=== PATIENT | female | born 1975 | race Caucasian/White ===

== ENCOUNTER 2017-02-13 10:38 | Inpatient (IN) | payer OTHER ==
--- NOTE | 2017-02-13 11:50 | EDPHY ---
H & P Stated Complaint: Low back pain with bowel changes Time Seen by Provider: 02/13/17 11:10 HPI/ROS: CHIEF COMPLAINT: Worsening recent low back pain HISTORY OF PRESENT ILLNESS: 42-year-old female with history of microdiskectomy [address] Eligio Roberts complaining of several weeks of progressively worsening low back pain with left buttock pain as well as change in bowel habits. She spoke with Dr. Eligio Roberts recommend she go to the ER for emergent MRI. No urinary abnormality. Atraumatic. No saddle anesthesia. No abdominal pain. No fever or chills. No foot drop. No flu-like symptoms Last oral intake 830 a.m. today REVIEW OF SYSTEMS: A ten point review of systems was performed and is negative with the exception of the items mentioned in the HPI PAST MEDICAL & SURGICAL HISTORY: Microdiskectomy April 2016 SOCIAL HISTORY:no IV drug use history PHYSICAL EXAM (Prior to examination, patient consented to physical exam, hands were washed and my usual and customary physical exam procedures followed) 1) GENERAL: Well-developed, well-nourished, alert and oriented. appears uncomfortable, standing on rocking back and forth secondary to pain 2) HEAD: Normocephalic, atraumatic 3) HEENT: Pupils equal, round, reactive to light bilaterally. Sclera anicteric. 4) NECK: Full range of motion, no meningeal signs. 5) LUNGS: Clear auscultation bilaterally, no wheezes, no rhonchi, no retractions. 6) HEART: Regular rate and rhythm, no murmur, no heave, no gallop. 7) ABDOMEN: No guarding, no rebound, no focal tenderness, negative McBurney's, negative Le's, negative Rovsing's, negative peritoneal sign, 8) MUSCULOSKELETAL: Moving all extremities, no focal areas of tenderness, no obvious trauma. No peripheral edema or discoloration. 9) BACK: Midline incision noted, well healed. No tenderness to palpation midline or paraspinous region. Left patella and Achilles reflexes are slowed compared to the right. 10) SKIN: No rash, no petechiae. 11) NEURO: Awake, alert, and oriented to person, place and time. Answers questions appropriately. There were no obvious focal neurologic abnormalities. No cerebellar dysfunction. Normal steady gait. Upper and lower extremities bilaterally with strength 5 / 5, reflexes 2+.. DIFFERENTIAL DIAGNOSIS: In no particular order, including but not limited to, fracture, sprain/strain, cauda equina, spinal infectious etiology. MEDICAL DECISION MAKING 11:50 a.m. Patient was sent to the emergency department By Dr. Eligio Robertsfor emergent MRI of her low back for concerns over possible spinal compression disorder. Emergent MRI will be obtained. - Personal History LMP (Females 10-55): IUD In Place Current Tetanus Diphtheria and Acellular Pertussis (TDAP): Yes - Medical/Surgical History Other PMH: degenerative disc disease. L5-S1 surgery 2016 for herniated disc. rosacea - Social History Smoking Status: Never smoked Constitutional: Initial Vital Signs Temperature (C) 36.7 C 02/13/17 10:40 Heart Rate 71 02/13/17 10:40 Respiratory Rate 18 02/13/17 10:40 Blood Pressure 140/74 H 02/13/17 10:40 O2 Sat (%) 96 02/13/17 10:40 O2 Delivery Mode Room Air Allergies/Adverse Reactions: No Known Allergies Allergy (Unverified 02/13/17 10:45) Home Medications: Medication Instructions Recorded Doxycycline Hyclate [Vibramycin 100 mg PO 02/13/17 100 MG (*)] Medical Decision Making - Diagnostics Imaging Results: Imaging Impressions Lumbar Spine MRI 02/13/17 11:17 Impression: Large recurrent extrusion or free fragment at L5-S1 causing significant left lateral recess encroachment compressing the S1 nerve root, as above. Results called to Cuong Gomez PA-C. Images reviewed by myself ED Course/Re-evaluation: 1:00 p.m.: Consultation with nurse practitioner Treasure with [facility] who is in the ER will contact Dr. Eligio Roberts. The patient repeatedly declined analgesia in the ER 2:30 p.m.: Phone consultation with the patient's primary neurosurgeon Dr. Eligio Roberts who recommended admission - Data Points Laboratory Results: Laboratory Results 02/13/17 13:07 02/13/17 13:07 02/13/17 02/13/17 02/13/17 13:07 13:07 13:07 WBC RBC Hgb Hct MCV MCH MCHC RDW Plt Count MPV Neut % (Auto) Lymph % (Auto) [place] % (Auto) Eos % (Auto) Baso % (Auto) Nucleat RBC Rel Count Absolute Neuts (auto) Absolute Lymphs (auto) Absolute Monos (auto) Absolute Eos (auto) Absolute Basos (auto) Absolute Nucleated RBC Immature Gran % Immature Gran # PT 13.0 SEC SEC (12.0-15.0) INR 0.99 (0.83-1.16) APTT 29.1 SEC SEC (23.0-38.0) Sodium 138 mEq/L mEq/L (134-144) Potassium 4.5 mEq/L mEq/L (3.5-5.2) Chloride 105 mEq/L mEq/L (97-110) Carbon Dioxide 23 mEq/l mEq/l (22-31) Anion Gap 10 mEq/L mEq/L (8-16) BUN 13 mg/dL mg/dL (7-23) Creatinine 0.7 mg/dL mg/dL (0.6-1.0) Estimated GFR > 60 Glucose 83 mg/dL mg/dL (70-100) Calcium 9.8 mg/dL mg/dL (8.5-10.4) Beta HCG, Qual NEGATIVE 02/13/17 13:07 WBC 6.65 10^3/uL 10^3/uL (3.80-9.50) RBC 4.27 10^6/uL 10^6/uL (4.18-5.33) Hgb 13.2 g/dL g/dL (12.6-16.3) Hct 41.1 % % (38.0-47.0) MCV 96.3 fL fL (81.5-99.8) MCH 30.9 pg pg (27.9-34.1) MCHC 32.1 g/dL L g/dL (32.4-36.7) RDW 13.2 % % (11.5-15.2) Plt Count 266 10^3/uL 10^3/uL (150-400) MPV 10.0 fL fL (8.7-11.7) Neut % (Auto) 34.9 % L % (39.3-74.2) Lymph % (Auto) 52.5 % H % (15.0-45.0) [place] % (Auto) 6.9 % % (4.5-13.0) Eos % (Auto) 4.7 % % (0.6-7.6) Baso % (Auto) 0.8 % % (0.3-1.7) Nucleat RBC Rel Count 0.0 % % (0.0-0.2) Absolute Neuts (auto) 2.33 10^3/uL 10^3/uL (1.70-6.50) Absolute Lymphs (auto) 3.49 10^3/uL H 10^3/uL (1.00-3.00) Absolute Monos (auto) 0.46 10^3/uL 10^3/uL (0.30-0.80) Absolute Eos (auto) 0.31 10^3/uL 10^3/uL (0.03-0.40) Absolute Basos (auto) 0.05 10^3/uL 10^3/uL (0.02-0.10) Absolute Nucleated RBC 0.00 10^3/uL 10^3/uL (0-0.01) Immature Gran % 0.2 % % (0.0-1.1) Immature Gran # 0.01 10^3/uL 10^3/uL (0.00-0.10) PT INR APTT Sodium Potassium Chloride Carbon Dioxide Anion Gap BUN Creatinine Estimated GFR Glucose Calcium Beta HCG, Qual Departure - Departure Disposition: [facility] Inpatient Acute Clinical Impression: Lumbar disc herniation Condition: Fair Referrals: NONE *PRIMARY CARE P,. [Primary Care Provider] - As per Instructions
[2017-02-13 13:18] LABS: % IMMATURE GRANULYOCYTES 0.2 % (0.0-1.1); ABSOLUTE IMMATURE GRANULOCYTES 0.01 10^3/uL (0.00-0.10); ADD DIFF? NO; ADD MORPH? NO; ADD SCAN? NO; ATYPICAL LYMPHOCYTE FLAG 10 (0-99); FRAGMENT RBC FLAG 0 (0-99); HEMATOCRIT 41.1 % (38.0-47.0); HEMOGLOBIN 13.2 g/dL (12.6-16.3); LEFT SHIFT FLG 0 (0-99); LIPEMIA HEMOLYSIS FLAG 80 (0-99); MEAN CELL HEMOGLOBIN 30.9 pg (27.9-34.1); MEAN CELL HEMOGLOBIN CONCENTR. 32.1 g/dL (32.4-36.7); MEAN CELL VOLUME 96.3 fL (81.5-99.8); PLATELET CLUMPS FLAG 10 (0-99); PLATELET COUNT 266 10^3/uL (150-400); RED BLOOD CELL COUNT 4.27 10^6/uL (4.18-5.33); RED CELL DISTRIBUTION WIDTH 13.2 % (11.5-15.2)
[2017-02-13 13:29] LABS: INR 0.99 (0.83-1.16)
[2017-02-13 13:30] LABS: APTT 29.1 SEC (23.0-38.0)
[2017-02-13 13:34] LABS: ANION GAP 10 mEq/L (8-16); CALCIUM 9.8 mg/dL (8.5-10.4); CARBON DIOXIDE 23 mEq/l (22-31); CHLORIDE 105 mEq/L (97-110); CREATININE 0.7 mg/dL (0.6-1.0); GLOMERULAR FILTRATION RATE > 60; GLUCOSE 83 mg/dL (70-100); POTASSIUM 4.5 mEq/L (3.5-5.2); SODIUM 138 mEq/L (134-144)
--- NOTE | 2017-02-13 14:49 | GHP ---
[f rep st] HISTORY AND PHYSICAL DATE OF ADMISSION: 02/13/2017 Patient was seen in the emergency room with Dr. Ledesma today on February 13, 2017, at 1:15 p.m. CHIEF COMPLAINT: Low back pain and left hamstring pain. HISTORY OF PRESENT ILLNESS: The patient is a 42-year-old with a history of L5- S1 microdiskectomy with Dr. Roberts on April 21, 2016. 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 Her symptoms started several months ago, and she has not been running for some time now due to her pain. She was seen in the office by Dr. Roberts last month who ordered an MRI, and it was pending approval. She went to the emergency room this morning in severe pain and underwent an MRI of her lumbar spine. She denies any incontinence issues but does note that she has some pressure when having a bowel movement in her lower back. She denies any saddle anesthesia. No numbness/tingling in bilateral lower extremities. She notes some weakness in her left leg but is unable to identify which muscle group in affected. REVIEW OF SYSTEMS: See HPI PAST MEDICAL HISTORY: Lumbar disc herniation PAST SURGICAL HISTORY: Patient had a L5-S1 microdiskectomy in April 2016. She has a history of breast augmentation as well as tummy tuck. CURRENT MEDICATIONS: She is taking Duexis.Last dose was 8 o'clock this morning. ALLERGIES: No known allergies. FAMILY MEDICAL HISTORY: Unknown family medical history. SOCIAL HISTORY: Patient denies any street or illicit drug use. She does not smoke. She drinks wine occasionally socially. PHYSICAL EXAMINATION: VITAL SIGNS: 36.7 Celsius, heart rate 71, respiratory rate of 18, blood pressure 140/74, oxygen 96% on room air. GENERAL: Well- developed, well-nourished. Alert and oriented. Appears uncomfortable. MOTOR: Bilateral quadriceps 5/5. Bilateral hamstrings 5/5. Bilateral extensor hallucis longus 5/5. Bilateral toe extensors 5/5. Bilateral tibialis anterior 5/5. Sensory is intact to light touch throughout her lower extremities. Deep tendon reflexes bilaterally patellar 2+. Unable to assess gait for she was in a stretcher. RADIOLOGY: MRI of the lumbar spine without contrast was performed. Findings demonstrate presence of a left laminotomy at L5-S1. There is a large recurrent extrusion or free fragment at the L5-S1 causing significant left lateral recess encroachment compressing the S1 nerve root. The free fragment in the left lateral recess measures 13 x 12 mm in the axial plane. ASSESSMENT AND PLAN: The patient is a 42-year-old with acute pain with a large left L5-S1 disc herniation who has a history of a microdiskectomy, L5-S1, in April [address] Roberts. She came into the emergency room this morning with severe pain. Risks, benefits and concerns discussed with patient regarding surgery. We will proceed with a left L5-S1 redo ZAN in the morning due to the severity of her disk herniation and severe pain she is experiencing. She has subjective weakness she describes in her left lower extremity. We will admit her to optimize pain management with surgical planning in mind. /[id number]/MODL MTDD
[2017-02-13] MEDS ORDERED: diphenhydrAMINE 25 MG CAP PO PRN (15:29)
[2017-02-13] MEDS ORDERED: ACETAMINOPHEN 325 MG TAB PO PRN (15:29)
[2017-02-13] MEDS ORDERED: ONDANSETRON DISINTEGRATING 4 MG TAB PO PRN (15:29)
[2017-02-13] MEDS ORDERED: ONDANSETRON 4 MG/2 ML VIAL IVP PRN (15:29)
[2017-02-13] MEDS ORDERED: HYDROCODONE/APAP 5/325 TAB PO PRN (15:29)
[2017-02-13] MEDS ORDERED: NS W/ 20 KCl/L 1,000 ML IV SCH (15:30)
[2017-02-13] MEDS ORDERED: HYDROmorphONE/DILAUDID 2 MG/ML INJ ONE (15:46)
[2017-02-13] MEDS: HYDROmorphONE/DILAUDID 1 MG/ML SYR IVP PRN ×2 (15:54→21:04)
[2017-02-14] MEDS: HYDROmorphONE/DILAUDID 2 MG TAB PO PRN ×3 (01:41→19:52)
[2017-02-14] MEDS: DOXYCYCLINE HYCLATE 100 MG CAP/TAB PO SCH (08:29)
[2017-02-14] MEDS ORDERED: DOXYCYCLINE HYCLATE 50 MG PO SCH (09:00)
[2017-02-14] MEDS ORDERED: THROMBIN (BOVINE) 5,000 UNIT VIAL TP ONE (09:18)
[2017-02-14] MEDS ORDERED: DEPO METHYLPREDNISOLONE 40 MG/ML SDV ONE (09:19)
[2017-02-14] MEDS ORDERED: BUPIVACAINE/EPI 0.25% 30 ML SDV ONE (09:19)
[2017-02-14] MEDS ORDERED: BACITRACIN 50,000 UNITS/10 ML SYR IRR ONE (09:19)
[2017-02-14] MEDS ORDERED: ceFAZolin 2 GM/DEXTROSE 100 ML IV ONE (10:00)
[2017-02-14] MEDS ORDERED: CEFAZOLIN 2 GM/DEXTROSE/100 ML BAG IV ONE (10:10)
[2017-02-14] MEDS ORDERED: MIDAZOLAM 2 MG/2 ML VIAL ONE (10:55)
[2017-02-14] MEDS ORDERED: fentaNYL 100 MCG/2 ML INJ ONE ×4 (11:02→12:36)
[2017-02-14] MEDS ORDERED: LIDOCAINE 2% 100 MG/5 ML SYR ONE (11:03)
[2017-02-14] MEDS ORDERED: PROPOFOL/EMULSION 500 MG/50 ML BOTTLE IV ONE ×3 (11:03→13:01)
[2017-02-14] MEDS ORDERED: DEXAMETHASONE 4 MG/ML VIAL ONE ×2 (11:03)
[2017-02-14] MEDS ORDERED: ROCURONIUM 50 MG/5 ML VIAL ONE (11:03)
--- NOTE | 2017-02-14 13:37 | POSTOPPROG ---
Post Op Note Date of Operation: 02/14/17 Surgeon: Sage Roberts Gear Design Engineer: Nadege Anesthesiologist: Anai Anesthesia: GET(General Endotracheal) Pre-op Diagnosis: recurrent left L5/S1 HNP Post-op Diagnosis: same Indication: left leg pain Procedure: redo left L5/S1 Meenu Findings: large free fragment behind body of S1 Inf/Abcess present in the surg proc area at time of surgery?: No EBL: 50-100 Complications: none
--- NOTE | 2017-02-14 13:40 | SOAPPROG ---
SOAP Progress Note Assessment/Plan: Assessment: Post op check: doing well after left L5/s1 redo ZAN with removal of large free fragment HNP. Plan: DC Home today if tolerating PO, Urinating, ambulating and with good pain control on oral meds Follow up with Dr. Roberts in 7-10 days call [phone] with questions/concerns Subjective: awake, alert, comfortable Objective: Vital Signs Temp Pulse Resp BP Pulse Ox 36.6 C 40 L 16 113/68 96 02/14/17 08:00 02/14/17 08:17 02/14/17 08:17 02/14/17 08:17 02/14/17 08:17 02/13/17 02/14/17 02/15/17 05:59 05:59 05:59 Intake Total 1200 Output Total 450 Balance 750 PT 13.0 SEC (12.0-15.0) 02/13/17 13:07 INR 0.99 (0.83-1.16) 02/13/17 13:07 Vitals; HR: 50 BP: 108/47 O2: 99% neuro: VALLES, sens +LT follows commands 5/5 bilateral DF/PF/EHL flexes knees ICD10 Worksheet Patient Problems: Problems Problem Status Onset Lumbar disc herniation Acute
[2017-02-14] MEDS ORDERED: OXYCODONE/APAP 5/325 TAB PO PRN (13:44)
[2017-02-14] MEDS ORDERED: POLYETHYLENE GLYCOL 3350 17 GM PKT PO PRN (13:44)
[2017-02-14] MEDS ORDERED: BISACODYL 10 MG SUPP PR PRN (13:44)
[2017-02-14] MEDS ORDERED: ACETAMINOPHEN 325 MG TAB PO PRN (13:44)
[2017-02-14] MEDS ORDERED: LACTULOSE 20 GM/30 ML UDCUP PO PRN (13:44)
[2017-02-14] MEDS ORDERED: DIAZEPAM 10 MG/2 ML SYR IVP PRN (13:44)
[2017-02-14] MEDS ORDERED: DIAZEPAM 5 MG TAB PO PRN (13:44)
--- NOTE | 2017-02-14 15:58 | GOP ---
[f rep st] OPERATIVE REPORT DATE OF OPERATION: 02/14/2017 SURGEON: Analy Roberts MD NEUROSURGEON: Analy Roberts MD SILVICULTURE FORESTER: Aayush Light PA-C PREOPERATIVE DIAGNOSIS: Recurrent disk herniation, left L5-S1. POSTOPERATIVE DIAGNOSIS: Recurrent disk herniation, left L5-S1. PROCEDURE PERFORMED: Left L5-S1 re-exploration with S1 laminotomy and evacuation of large intraspin al disk herniation (11498), microscope, fluoroscopy. FINDINGS: ESTIMATED BLOOD LOSS: 25 cc. INDICATIONS: The patient is a healthy woman who had a prior history of a left L5-S1 diskectomy, who did well. She returned to our office about a month ago with increasingly severe left lower extremi ty pain. She clearly had recurrent left S1 radiculopathy, and we suggested an MRI. Her insurance [employer] would not approve the MRI. Clinical history was very consistent with recurrent disk herniati on, but they simply would not approve another MRI. We tried to manage this conservatively, but then on Thursday (yesterday) the patient had just excruciating pain that she could not tolerate any longer . We suggested a visit to the emergency room where she was seen in [facility] ER an d indeed the ER physician felt that an MRI was warranted. The MRI demonstrated a huge left L5-S1 di sk extrusion causing severe stenosis of the canal and compressing the left S1 and S2 nerve roots. T here was no reasonable expectation that conservative measures would alleviate this, and the patient is in excruciating pain. She desired to have surgery. She was placed on the schedule this morning for an urgent left L5-S1 re-exploration. The MRI did demonstrate dura draped over the top of the la rge disk extrusion. The S1 nerve root was pushed laterally. The S2 nerve root was also being compr essed and I suggested surgery. The risk of CSF leak and continued symptoms was discussed. If furth er disease, herniations occur here, we would naturally consider spinal fusion. She understood the r isks of surgery, and she wanted to proceed. DESCRIPTION OF PROCEDURE: The patient was taken to the operating room and placed in a supine positi on. General anesthesia was begun. She was flipped prone onto the [place]o frame. Care was taken to pad all points of contact. Her back was sterilely prepped and draped in the usual fashion. A local izing x-ray was taken. We opened the previous incision and extended it rostrally about 3 or 4 mm an d caudally about 3 or 4 cm. Our prior incision was under 15 mm; this was just right at 25 mm. The subcutaneous tissue was dissected using Bovie cautery down to the fascia and a subperiosteal dissect ion was made down the left side of the sacrum. We identified the L5-S1 facet joint. We did not exp ose the L5 lamina itself. We had excellent exposure of the sacrum, and the prior laminotomy defect was identified. We then drilled a rostral S1 hemilaminotomy and worked our way laterally down to th e S1 pedicle where we decompressed flush with the pedicle. We came over the rostral aspect of the p edicle and the L5-S1 foramen. There was a large amount of scar tissue present here. The S1 nerve r oot was identified. We extended our laminotomy medially up above the S2 nerve root, and between the 2 was a large very firm mass that was covered in some epidural fat and some epidural veins. These were removed and, indeed, this was the fragment in question. We delivered an absolutely huge fragme nt between these 2 nerves; it measured about 3 cm across by 2 cm across, when put on a towel. Volum etrically, it was the size of a very large marble. This relaxed the S2 and S1 nerve roots. We then spent considerable time probing underneath these nerve roots for additional fragments. We were abl e to reach up and palpate the L5-S1 disk itself, and there was some persistent rostral bulging in th e anulus of L5-S1 but really no additional fragments. We then palpated the epidural scar from the p rior surgery, and there was really no evidence of any additional mass underneath the thecal sac. We irrigated with antibiotic saline solution and placed some Depo-Medrol down over the S1 and S2 nerve roots. We then closed the incision in multiple layers using Vicryl sutures. Running PDS was place d in the skin itself. The patient was reversed from anesthesia, extubated, and transferred to the r ecovery room in stable condition. COMPLICATIONS: None. /[id number]/MODL
[2017-02-14] MEDS: SENNOSIDES/DOCUSATE SODIUM TAB PO SCH (19:52)
[2017-02-14] MEDS: FAMOTIDINE 20 MG TAB PO SCH (20:16)
[2017-02-14] MEDS ORDERED: FAMOTIDINE 20 MG/NACL 50 ML IV SCH (21:00)
[2017-02-15] MEDS: HYDROmorphONE/DILAUDID 2 MG TAB PO PRN ×2 (05:01→11:12)
[2017-02-15 05:25] LABS: % IMMATURE GRANULYOCYTES 0.3 % (0.0-1.1); ABSOLUTE IMMATURE GRANULOCYTES 0.03 10^3/uL (0.00-0.10); ADD DIFF? NO; ADD MORPH? NO; ADD SCAN? NO; ATYPICAL LYMPHOCYTE FLAG 0 (0-99); FRAGMENT RBC FLAG 0 (0-99); HEMATOCRIT 35.3 % (38.0-47.0); HEMOGLOBIN 11.5 g/dL (12.6-16.3); LEFT SHIFT FLG 0 (0-99); LIPEMIA HEMOLYSIS FLAG 80 (0-99); MEAN CELL HEMOGLOBIN 31.5 pg (27.9-34.1); MEAN CELL HEMOGLOBIN CONCENTR. 32.6 g/dL (32.4-36.7); MEAN CELL VOLUME 96.7 fL (81.5-99.8); MEAN PLATELET VOLUME 10.4 fL (8.7-11.7); PLATELET CLUMPS FLAG 0 (0-99); PLATELET COUNT 221 10^3/uL (150-400); RED BLOOD CELL COUNT 3.65 10^6/uL (4.18-5.33); RED CELL DISTRIBUTION WIDTH 12.8 % (11.5-15.2)
[2017-02-15 05:45] LABS: ANION GAP 6 mEq/L (8-16); CALCIUM 9.2 mg/dL (8.5-10.4); CARBON DIOXIDE 25 mEq/l (22-31); CHLORIDE 103 mEq/L (97-110); CREATININE 0.8 mg/dL (0.6-1.0); GLOMERULAR FILTRATION RATE > 60; GLUCOSE 96 mg/dL (70-100); POTASSIUM 4.6 mEq/L (3.5-5.2); SODIUM 134 mEq/L (134-144)
[2017-02-15 07:28] VITALS: TEMP 97.8
[2017-02-15] MEDS ORDERED: ENOXAPARIN 40 MG/0.4 ML SYR SC SCH (09:00)
[2017-02-15] MEDS: SENNOSIDES/DOCUSATE SODIUM TAB PO SCH (09:52)
[2017-02-15] MEDS: FAMOTIDINE 20 MG TAB PO SCH (09:58)
[2017-02-15] MEDS: DOXYCYCLINE HYCLATE 100 MG CAP/TAB PO SCH (09:58)
[2017-02-15 12:15] VITALS: BP 129/70; PULSE 41; RESP 14; O2SAT 95
--- NOTE | 2017-02-15 12:24 | SOAPPROG ---
SOAP Progress Note Assessment/Plan: Assessment: doing well after left L5/s1 redo ZAN with removal of large free fragment HNP. left leg pain better Plan: DC Home today if tolerating PO, Urinating, ambulating and with good pain control on oral meds Follow up with Dr. Roberts in 7-10 days call [phone] with questions/concerns 02/15/17 12:23 Subjective: lying in bed, comfortable. Left leg feels much better. no new weakness or tingling Objective: Vital Signs Temp Pulse Resp BP Pulse Ox 36.6 C 41 L 14 129/70 H 95 02/15/17 12:00 02/15/17 12:00 02/15/17 12:00 02/15/17 12:00 02/15/17 12:00 Laboratory Results 02/15/17 04:15 02/15/17 04:15 02/14/17 02/15/17 02/16/17 05:59 05:59 05:59 Intake Total 1200 1550 Output Total 450 1875 Balance 750 -325 PT 13.0 SEC (12.0-15.0) 02/13/17 13:07 INR 0.99 (0.83-1.16) 02/13/17 13:07 Neuro: VALLES, sens +Lt ambulatory 5/5 DF/PF/EHL dressing: CDI ICD10 Worksheet Patient Problems: Problems Problem Status Onset Lumbar disc herniation Acute
== END 2017-02-15 13:06 | disposition home or self-care (01) | DRG 520 ==
LOC: F3N 15:39 → OBSVTOIN 15:42
PROVIDERS: ADMIT Neurological Surgery; ATTEND Neurological Surgery
PROC: 0SB40ZZ Excision of Lumbosacral Disc, Open Approach (ICD-10-PCS; principal; 2017-02-14 10:30)
DX: M51.17 Intervertebral disc disorders with radiculopathy, lumbosacral region (principal)
CPT/HCPCS: 97161-GP; 97165-GO; J0690; J1030; J1100; J1170; J1650; J2001; J2250; J2405; J2704; J3010

== ENCOUNTER 2017-03-16 10:22 | Inpatient (IN) | payer OTHER ==
--- NOTE | 2017-03-16 10:39 | EDPHY ---
H & P Stated Complaint: Exacerbation back pain;sent by neuro and will see in ED Time Seen by Provider: 03/16/17 10:38 - Personal History LMP (Females 10-55): IUD In Place Current Tetanus Diphtheria and Acellular Pertussis (TDAP): Yes - Medical/Surgical History Hx Asthma: No Hx Chronic Respiratory Disease: No Hx Diabetes: No Hx Cardiac Disease: No Hx Renal Disease: No Hx Cirrhosis: No Hx Alcoholism: No Hx HIV/AIDS: No Hx Splenectomy or Spleen Trauma: No Other PMH: degenerative disc disease. L5-S1 surgery 2016 for herniated disc, again 02/05/17. breast Augmentation. Tummy tuck. rosacea - Social History Smoking Status: Never smoked Constitutional: Initial Vital Signs Temperature (C) 36.7 C 03/16/17 10:30 Heart Rate 68 03/16/17 10:30 Respiratory Rate 18 03/16/17 10:30 Blood Pressure 117/93 H 03/16/17 10:30 O2 Sat (%) 98 03/16/17 10:30 O2 Delivery Mode Room Air Allergies/Adverse Reactions: No Known Allergies Allergy (Verified 03/16/17 10:33) Home Medications: Medication Instructions Recorded GABAPENTIN 400 mg PO 03/16/17 Methocarbamol [Robaxin 750 mg (*)] 750 mg PO 03/16/17 Medical Decision Making - Diagnostics Imaging: Discussed imaging studies w/ faculty i on call medical assistant Radiologist, I viewed and interpreted images myself ED Course/Re-evaluation: CHIEF COMPLAINT: radiculopathy HISTORY OF PRESENT ILLNESS: The patient is a 42 y/o female arriving with her family member at the referral of her neurosurgeon complaining of recurrent worsening leg radiculopathy. She has a history of lumbar herniation with spinal surgeries. Her pain is worst in her left gluteal region and thigh, but is also present in her right leg. Neurosurgeon requested lumbar MRI. Narcotics do not alleviate her pain. REVIEW OF SYSTEMS: A 10 point review of systems was performed and is negative with the exception of the elements mentioned in the history of present illness. PHYSICAL EXAM: HR, BP, O2 Sat, RR. Temp noted General Appearance: Alert, well hydrated, appropriate, and non-toxic appearing. Head: Atraumatic without scalp tenderness or obvious injury Eyes: Pupils equal, round, reactive to light and accommodation, EOMI, no trauma , no injection. Nose: Atraumatic, no rhinorrhea, clear. Throat: Mucus membranes moist. Neck: Supple,nontender, no lymphadenopathy. Respiratory: No retractions, no distress, no wheezes, and no accessory muscle use. Lungs are clear to auscultation bilaterally. Cardiovascular: Regular rate and rhythm, no murmurs, rubs, or gallops. Good capillary refill all extremities. Gastrointestinal: Abdomen is soft, nontender, non-distended, no masses, no rebound, no guarding, no peritoneal signs. Musculoskeletal: Normal active ROM of all extremities, atraumatic. Neurological: Alert, appropriate, and interactive. The patient has normal DTRs and non-focal cranial nerves, motor, sensory, and cerebellar exam. Skin: No rashes, good turgor, no nodules on palpation. Past medical history: Radiculopathy, lumbar disc herniation Past surgical history: 2 lumbar disc surgeries Family history: noncontributory Social history: Family member at bedside. Neurosurgeon: Dr. Roberts DIAGNOSTICS/PROCEDURES/CRITICAL CARE TIME: Lumbar MRI w/wout IV contrast: recurrent acute L5-S1 disc herniation with impingement DIFFERENTIAL DIAGNOSIS: The differential diagnosis for the patient's back pain included but was not limited to musculoskeletal pain, epidural abscess, herniated disk, spinal fracture, and intra-abdominal causes including urinary system. MEDICAL DECISION MAKING: This is an otherwise healthy 42 y/o female with a history of lumbar radiculopathy and spinal surgeries presenting with worsening radiculopathy. Plan for lumbar MRI and symptomatic management. 5mg IV Ketamine administered. Preoperative labs drawn. 1155: Reassessed patient. Neuro exam remains normal. She continues to have pain only slightly improved since Ketamine. She declines further pain meds at this time. MRI pending. 1400: MRI shows acute L5-S1 disc herniation with impingement. Dr. Morgan, neurosurgeon, plans to take her to surgery. I discussed findings with the patient. She continues to be in severe pain, but is declining pain medications. 1405: Consulted with Dr. Morgan. He will take patient to surgery at 16:30 today. - Data Points Laboratory Results: Laboratory Results 03/16/17 10:49 03/16/17 10:49 03/16/17 03/16/17 03/16/17 10:49 10:49 10:49 WBC 6.29 10^3/uL 10^3/uL (3.80-9.50) RBC 4.59 10^6/uL 10^6/uL (4.18-5.33) Hgb 14.5 g/dL g/dL (12.6-16.3) Hct 43.7 % % (38.0-47.0) MCV 95.2 fL fL (81.5-99.8) MCH 31.6 pg pg (27.9-34.1) MCHC 33.2 g/dL g/dL (32.4-36.7) RDW 13.3 % % (11.5-15.2) Plt Count 227 10^3/uL 10^3/uL (150-400) MPV 10.6 fL fL (8.7-11.7) Neut % (Auto) 53.9 % % (39.3-74.2) Lymph % (Auto) 38.3 % % (15.0-45.0) [place] % (Auto) 5.9 % % (4.5-13.0) Eos % (Auto) 1.1 % % (0.6-7.6) Baso % (Auto) 0.5 % % (0.3-1.7) Nucleat RBC Rel Count 0.0 % % (0.0-0.2) Absolute Neuts (auto) 3.39 10^3/uL 10^3/uL (1.70-6.50) Absolute Lymphs (auto) 2.41 10^3/uL 10^3/uL (1.00-3.00) Absolute Monos (auto) 0.37 10^3/uL 10^3/uL (0.30-0.80) Absolute Eos (auto) 0.07 10^3/uL 10^3/uL (0.03-0.40) Absolute Basos (auto) 0.03 10^3/uL 10^3/uL (0.02-0.10) Absolute Nucleated RBC 0.00 10^3/uL 10^3/uL (0-0.01) Immature Gran % 0.3 % % (0.0-1.1) Immature Gran # 0.02 10^3/uL 10^3/uL (0.00-0.10) APTT 27.5 SEC SEC (23.0-38.0) Sodium 144 mEq/L mEq/L (134-144) Potassium 4.1 mEq/L mEq/L (3.5-5.2) Chloride 105 mEq/L mEq/L (97-110) Carbon Dioxide 24 mEq/l mEq/l (22-31) Anion Gap 15 mEq/L mEq/L (8-16) BUN 13 mg/dL mg/dL (7-23) Creatinine 0.8 mg/dL mg/dL (0.6-1.0) Estimated GFR > 60 Glucose 88 mg/dL mg/dL (70-100) Calcium 9.9 mg/dL mg/dL (8.5-10.4) Medications Given: Discontinued Medications Ketamine HCl (Ketamine) 5 mg IVP EDNOW ONE Stop: 03/16/17 10:54 Last Admin: 03/16/17 11:39 Dose: 5 mg Departure - Departure Disposition: [facility] Inpatient Acute Clinical Impression: Lumbar disc herniation Condition: Fair Referrals: CARMEN HALE [Other] - As per Instructions Report Scribed for: Pollo Barry Report Scribed by: Sugey Markham Date of Report: 03/16/17 Time of Report: 10:48
[2017-03-16] MEDS ORDERED: KETAMINE 100 MG/10 ML SYR IVP ONE (10:53)
[2017-03-16 11:05] LABS: % IMMATURE GRANULYOCYTES 0.3 % (0.0-1.1); ABSOLUTE IMMATURE GRANULOCYTES 0.02 10^3/uL (0.00-0.10); ADD DIFF? NO; ADD MORPH? NO; ADD SCAN? NO; ATYPICAL LYMPHOCYTE FLAG 10 (0-99); FRAGMENT RBC FLAG 0 (0-99); HEMATOCRIT 43.7 % (38.0-47.0); HEMOGLOBIN 14.5 g/dL (12.6-16.3); LEFT SHIFT FLG 0 (0-99); LIPEMIA HEMOLYSIS FLAG 80 (0-99); MEAN CELL HEMOGLOBIN 31.6 pg (27.9-34.1); MEAN CELL HEMOGLOBIN CONCENTR. 33.2 g/dL (32.4-36.7); MEAN CELL VOLUME 95.2 fL (81.5-99.8); MEAN PLATELET VOLUME 10.6 fL (8.7-11.7); PLATELET CLUMPS FLAG 20 (0-99); PLATELET COUNT 227 10^3/uL (150-400); RED BLOOD CELL COUNT 4.59 10^6/uL (4.18-5.33); RED CELL DISTRIBUTION WIDTH 13.3 % (11.5-15.2)
[2017-03-16 11:19] LABS: ANION GAP 15 mEq/L (8-16); CALCIUM 9.9 mg/dL (8.5-10.4); CARBON DIOXIDE 24 mEq/l (22-31); CHLORIDE 105 mEq/L (97-110); CREATININE 0.8 mg/dL (0.6-1.0); GLOMERULAR FILTRATION RATE > 60; GLUCOSE 88 mg/dL (70-100); POTASSIUM 4.1 mEq/L (3.5-5.2); SODIUM 144 mEq/L (134-144)
[2017-03-16] MEDS ORDERED: GADOBUTROL 10 ML VIAL IVP ONE (12:38)
[2017-03-16] MEDS ORDERED: BUPIVACAINE/EPI 0.25% 30 ML SDV ONE ×2 (15:22→15:35)
[2017-03-16] MEDS ORDERED: BUPIVACAINE 0.25% 30 ML SDV ONE (15:22)
[2017-03-16] MEDS ORDERED: THROMBIN (BOVINE) 20,000 UNIT VIAL TP ONE (15:22)
[2017-03-16] MEDS ORDERED: BACITRACIN 50,000 UNITS/10 ML SYR IRR ONE (15:23)
[2017-03-16] MEDS ORDERED: ceFAZolin 2 GM/DEXTROSE 100 ML IV ONE (15:47)
[2017-03-16] MEDS ORDERED: CEFAZOLIN 2 GM/DEXTROSE/100 ML BAG IV ONE (15:52)
[2017-03-16] MEDS ORDERED: LR 1,000 ML IV ONE (16:04)
[2017-03-16] MEDS ORDERED: MIDAZOLAM 2 MG/2 ML VIAL IVP ONE (16:08)
--- NOTE | 2017-03-16 16:08 | PDANEPAE ---
ANE History of Present Illness radicular pain with large herniated disc ANE Past Medical History - Cardiovascular History Hx Hypertension: No Hx Arrhythmias: No Hx Chest Pain: No Hx Coronary Artery / Peripheral Vascular Disease: No Hx CHF / Valvular Disease: No Hx Palpitations: No - Pulmonary History Hx COPD: No Hx Asthma/Reactive Airway Disease: No Hx Recent Upper Respiratory Infection: No Hx Oxygen in Use at Home: No Hx Sleep Apnea: No - Endocrine History Hx Diabetes: No Hypothyroid: No - Renal History Hx Renal Disorders: No - Liver History Hx Hepatic Disorders: No - Neurological & Psychiatric Hx Hx Neurological and Psychiatric Disorders: Yes - Chronic Pain History Chronic Pain: Yes ANE Review of Systems - Exercise capacity Exercise capacity: >=4 METS - Systems Constitutional: Reports: no symptoms Cardiac: Reports: no symptoms Respiratory: Reports: no symptoms Muscolosketal: Reports: back pain Neurological: Reports: paresthesia ANE Patient History - Allergies Allergies/Adverse Reactions: No Known Allergies Allergy (Verified 03/16/17 10:33) - Home Medications Home Medications: Doxycycline Hyclate [Morgidox] 50 mg PO DAILY 03/16/17 [Last Taken 03/15/17] Gabapentin [Neurontin 100 MG (*)] 100 mg PO DAILY PRN 03/16/17 [Last Taken 03/16 1 cap] Methocarbamol [Robaxin 750 mg (*)] 750 mg PO DAILY PRN 03/16/17 [Last Taken Unknown] - NPO status NPO Since - Liquids (Date): 03/16/17 NPO Since - Liquids (Time): 09:00 NPO Since - Solids (Date): 03/16/17 NPO Since - Solids (Time): 09:00 - Anes Hx Anes Hx: no prior problems - Smoking Hx Smoking Status: Never smoked - Alcohol Use Alcohol Use: Rarely ANE Labs/Vital Signs - Labs Result Diagrams: 03/16/17 10:49 03/16/17 10:49 - Vital Signs Blood Pressure: 113/61 Heart Rate: 38 Respiratory Rate: 16 O2 Sat (%): 98 Height: 177.8 cm Weight: 68.039 kg ANE Physical Exam - Airway Neck exam: FROM Mallampati Score: Class 1 - Pulmonary Pulmonary: no respiratory distress - Cardiovascular Cardiovascular: regular rate and rhythym - ASA Status ASA Status: I, E
[2017-03-16] MEDS ORDERED: fentaNYL 100 MCG/2 ML INJ ONE ×3 (16:14→19:30)
[2017-03-16] MEDS ORDERED: PROPOFOL/EMULSION 500 MG/50 ML BOTTLE IV ONE ×2 (16:14→17:57)
[2017-03-16] MEDS ORDERED: REMIFENTANIL HCL 1 MG VIAL ONE ×4 (16:14→17:57)
[2017-03-16] MEDS ORDERED: LIDOCAINE 2% 5 ML SDV ONE (16:14)
[2017-03-16] MEDS ORDERED: ROCURONIUM 50 MG/5 ML VIAL ONE (16:14)
[2017-03-16] MEDS ORDERED: PROPOFOL 200 MG/20 ML VIAL ONE (16:14)
[2017-03-16] MEDS ORDERED: SCOPOLAMINE HYDROBROMIDE 1.5 MG PATCH TD SCH (16:15)
--- NOTE | 2017-03-16 16:19 | GHP ---
[f rep st] PREOP HISTORY AND PHYSICAL DATE OF ADMISSION: 03/16/2017 CHIEF COMPLAINT: Patient was seen in the emergency room today, March 16, 2017, at [address] Morgan, for left leg pain. HISTORY OF PRESENT ILLNESS: Patient is a very healthy, active, 42-year-old female, who is status post L5-S1 left microdiskectomy in [place] [address] Roberts, and a re-do L5-S1 left microdiskectomy on February 14, 2017, with Dr. Roberts. She was doing well postoperatively and nearly all of her left leg pain had resolved until approximately 1-1/2 weeks ago. She began to feel some sensations in the posterior aspect of her left leg again, which has increasingly gotten worse over the last few days. Her current symptoms start in her left buttock and run down the posterior aspect of her left leg. She is also starting to feel symptoms in her right buttock as well. She denies any bowel or bladder incontinence. She denies any saddle anesthesia. But, patient does state she feels she has frequent urgency to urinate and is finding having a bowel movement extremely painful. REVIEW OF SYSTEMS: A 12-point review of systems were reviewed and negative aside for what was mentioned in the HPI. PAST MEDICAL HISTORY: Degenerative disk disease, rosacea. PAST SURGICAL HISTORY: L5-S1 microdiskectomy in 2015, L5-S1 microdiskectomy February 14, 2017, breast augmentation, tummy tuck. FAMILY HISTORY: Patient denies any cancer, diabetes, or cardiac disease in her mother and father. 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 Does not smoke cigarettes. Does not do drugs. CURRENT MEDICATIONS: gabapentin and Robaxin. ALLERGIES: No known drug allergies. PHYSICAL EXAMINATION: VITAL SIGNS: Blood pressure is 117/93, heart rate is 68 , respiratory rate of 18, temperature is 36.7 Celsius. Oxygen saturation is 98 % on room air. HEENT: Head is normocephalic and atraumatic. Pupils are equal , round and reactive to light. EOMI is intact. Full visual pimentel by confrontation. NECK: Soft and supple. Full range of motion with flexion, extension, lateral bending rotation. RESPIRATORY: Deferred. CARDIAC: Deferred. ABDOMEN: Soft and nontender. GENITOURINARY: Deferred. RECTAL: Deferred. NEUROLOGICAL: The patient is awake, alert, and oriented to name, place, location, date, time, and situation. Memory is intact to immediate, past , and current events. Speech: No aphasia or dysphonia. Cranial nerves: 2 through 12 are grossly intact. Motor: The patient has 5/5 strength in all muscle groups bilateral lower extremities and upper extremities, to include deltoids, biceps, triceps, brachial radialis, wrist flexion and extensors, proposal specialist , intrinsic fingers, iliopsoas, quadriceps, hamstrings, plantar flexion, dorsal flexion, EHL testing. Sensation: Grossly intact to light touch throughout all dermatomal distributions in bilateral lower extremities. Positive straight leg raise on the left. Negative NANCY test bilaterally. Reflexes: Biceps, triceps , brachial radialis, knee reflex and ankle reflex are 2+/4. Toes are downgoing bilaterally. Roberto sign is negative. Babinski is negative. No evidence of clonus. DIAGNOSTIC STUDIES: New MRI of the lumbar spine performed with and without contrast on March 16, 2017, demonstrated a large recurrent extrusion of the left parasagittal location at L5-S1, extending caudally posteriorly to the L5 nerve root, causing severe lateral recess encroachment and moderate central spinal canal narrowing. ASSESSMENT/PLAN: Patient is a healthy 42-year-old female who presented to the emergency room with excruciating left leg pain and is status post re-do left L5- S1 microdiskectomy from February 14, 2017. Patient was seen in the emergency room today with increasing pain in her left posterior leg. MRI of the lumbar spine demonstrated a large recurrent disk extrusion at L5-S1, causing severe left lateral recess encroachment and moderate central spinal canal narrowing. Patient has had 2 previous microdiskectomies at this level within the last year. Risks and benefits of both re-do microdiskectomy, as well as a lumbar fusion surgery at the L5-S1 level were discussed at length. It is recommended the patient proceed with an L5-S1 transforaminal lumbar interbody fusion due to the recurrence of her disk herniation. We discussed non-surgical options such as pain management and injections but given her level of pain, she would be unable to manage this at home. Patient wishes to proceed with fusion surgery, which will happen later today with Dr. Morgan. Consents were reviewed. Risks were reviewed, which include vessel injury, nerve injury, cerebrospinal fluid leak, need for additional surgery. Patient understands there is increased risk for cerebrospinal fluid leak due to previous surgeries at that level. Patient was seen in the emergency room with Dr. Morgan today, March 16, 2017, at 1430. /[id number]/MODL MTDD
[2017-03-16] MEDS ORDERED: DEXAMETHASONE 4 MG/ML VIAL ONE ×2 (16:45)
[2017-03-16] MEDS ORDERED: morphINE PF 5 MG/10 ML INJ ONE (16:51)
[2017-03-16] MEDS ORDERED: morphINE PF 5 MG/10 ML INJ IT ONE (17:02)
[2017-03-16] MEDS ORDERED: HYDROmorphONE/DILAUDID 1 MG/ML SYR IVP PRN (18:53)
[2017-03-16] MEDS ORDERED: ONDANSETRON 4 MG/2 ML VIAL IVP PRN ×2 (18:53→19:24)
[2017-03-16] MEDS ORDERED: MEPERIDINE 25 MG/ML SYR IVP PRN (18:53)
[2017-03-16] MEDS ORDERED: fentaNYL 100 MCG/2 ML INJ IVP PRN (18:53)
[2017-03-16] MEDS ORDERED: NALOXONE HCL 0.4 MG/ML INJ IVP PRN (18:53)
[2017-03-16] MEDS ORDERED: OXYCODONE/APAP 5/325 TAB PO PRN (18:53)
[2017-03-16] MEDS ORDERED: PROMETHAZINE HCL 25 MG/ML INJ IVP PRN (18:53)
[2017-03-16] MEDS ORDERED: DIAZEPAM 10 MG/2 ML SYR IVP ONE (19:11)
[2017-03-16] MEDS ORDERED: BISACODYL 10 MG SUPP PR PRN (19:24)
[2017-03-16] MEDS ORDERED: LACTULOSE 20 GM/30 ML UDCUP PO PRN (19:24)
[2017-03-16] MEDS ORDERED: ONDANSETRON DISINTEGRATING 4 MG TAB PO PRN (19:24)
[2017-03-16] MEDS ORDERED: MAGNESIUM HYDROXIDE 30 ML UDCUP PO PRN (19:24)
[2017-03-16] MEDS ORDERED: oxyCODONE IR 5 MG TAB PO PRN (19:24)
[2017-03-16] MEDS ORDERED: POLYETHYLENE GLYCOL 3350 17 GM PKT PO PRN (19:24)
--- NOTE | 2017-03-16 19:27 | POSTANESTH ---
Post Anesthetic Evaluation Cardiovascular Status: Normal, Stable Respiratory Status: Normal, Stable Level of Consciousness/Mental Status: Can Participate in Eval Pain Control: Adequate, Prn Tx Ordered Nausea/Vomiting Control: Adequate, Prn Tx Ordered Complications Possibly Related to Anesthesia: None Noted
[2017-03-16] MEDS ORDERED: NS 1,000 ML IV SCH (19:30)
[2017-03-16] MEDS ORDERED: ONDANSETRON 4 MG/2 ML VIAL ONE (19:30)
[2017-03-16] MEDS ORDERED: HYDROmorphONE/DILAUDID 1 MG/ML SYR ONE (19:30)
[2017-03-16] MEDS ORDERED: MEPERIDINE 25 MG/ML SYR ONE (19:32)
[2017-03-16] MEDS: fentaNYL 100 MCG/2 ML INJ IVP PRN ×2 (19:35→20:10)
[2017-03-16] MEDS: HYDROmorphONE/DILAUDID 1 MG/ML SYR IVP PRN ×3 (19:43→20:10)
--- NOTE | 2017-03-16 19:47 | SOAPPROG ---
SOAP Progress Note Assessment/Plan: Assessment: 42 year old female s/p L5-S1 TLIF with Dr Morgan 03/16/17 Plan: -PT/OT -Patient will be fitted with brace tomorrow in am (03/17) -Optimize pain management -May start Lovenox 24 hours post op (03/17 @1900) -Call neurosurg with any questions or concerns 03/16/17 19:44 03/16/17 19:49 Subjective: Patient leg pain gone, has lower back pressure Objective: Vital Signs Temp Pulse Resp BP Pulse Ox 36.4 C 38 L 16 113/61 98 03/16/17 15:31 03/16/17 16:08 03/16/17 16:08 03/16/17 16:08 03/16/17 16:08 Objective: NAD A&Ox3 MAEx4 5/5 and equal in BUE and BLE Incision c/d/i MANDY in place - Pending Discharge Pending Discharge Within 24 Hours: No Pending Discharge Within 48 Hours: No ICD10 Worksheet Patient Problems: Problems Problem Status Onset Lumbar disc herniation Acute
--- NOTE | 2017-03-16 20:34 | GOP ---
[f rep st] OPERATIVE REPORT DATE OF OPERATION: 03/16/2017 SURGEON: Jensen Morgan MD SURVEYING TECHNICIAN: Lina Ferguson NP ANESTHESIA: General. PREOPERATIVE DIAGNOSIS: 1. Recurrent left L5-S1 herniated nucleus pulposus. 2. Intractable left lower extremity radiculopathy. POSTOPERATIVE DIAGNOSIS: 1. Recurrent left L5-S1 herniated nucleus pulposus. 2. Intractable left lower extremity radiculopathy. PROCEDURE PERFORMED: 1. Posterior arthrodesis with approach to L5-S1. 2. Posterolateral fusion with bilateral pedicle screw placement at L5-S1 from the Solasta Solera system. 3. Re-do left L5-S1 hemilaminotomy with re-do microdiskectomy, nerve decompression, foraminotomy, and pars resection. 4. Left-sided L5-S1 transforaminal lumbar interbody fusion with a 7 x 23 mm titanium PEEK elevated cage with morselized autograft and allograft. 5. Posterolateral fusion on the right between L5 and S1 with morselized autograft and allograft. 6. Use of intraoperative 3D Stealth navigation. 7. Use of intraoperative fluoroscopy, less than 1 hour physician time. 8. Use of neuromonitoring. 9. Use of the operating microscope. 10. Injection of preservative-free intrathecal narcotics. FINDINGS: per imaging SPECIMENS: None. ESTIMATED BLOOD LOSS: 100 mL. INDICATIONS: The patient is a 42-year-old woman who has undergone 2 prior left- sided L5-S1 microdiskectomies by Dr. Roberts. She was doing quite well and called with intractable left leg pain. She was directed to the Emergency Department where imaging studies demonstrated a very large, recurrent, left L5- S1 disk herniation. The patient was in intractable pain, and given the fact that she now herniated a 3rd time, and was only 3 weeks out from her prior surgery, she wished to proceed forth with surgical intervention as described above. Non-operative interventions were discussed with the patient, but she wished for surgery. The risks and benefits of surgery were described to her and she wished to proceed. Consents were signed. DESCRIPTION OF PROCEDURE: Patient was brought to the operating theater and underwent general endotracheal anesthesia without complications. She had Venodyne's, DEJA hose, and the appropriate lines placed by Anesthesia. She was flipped prone onto the Koby table and all bony processes inspected and padded. The lower lumbar region was prepped and draped in the usual sterile surgical fashion. A time-out was completed per protocol and the patient had received antibiotics within 1 hour of incision. We incorporated the previous midline incision, which was then infiltrated with Marcaine with epinephrine. The incision was taken down with the scalpel blade, and then using monopolar, taken down the midline through the lumbodorsal fascia , and a subperiosteal dissection carried out bilaterally to the L5 and S1 transverse processes. Care was taken to preserve the L4-5 facet joint. Deep retractors were placed to maintain our exposure. We took care to avoid the previous hemilaminotomy defect on the left side. We attached the 3D Stealth navigation clamp to the spinous process of L5 and completed a 3D Stealth navigation spin. Using 3D Stealth navigation, we then placed the pilot plant research technician holes for the bilateral pedicle screws into L5 and S1. All holes were manually palpated without any cortical breaches. We then tapped and placed a 6.5 x 40 mm screw on the left at L5, a 6.5 x 45 mm screw on the right at L5, and 6.5 x 40 mm screws bilaterally in S1. Another 3D Stealth navigation spin demonstrated good placement of the hardware. At this point, the microscope was brought onto field to assist with microscopic dissection and to maintain illumination and magnification. Using very careful surgical technique and dissection, we used the curettes to tease the scar tissue from the previous hemilaminotomy defect on the left side at L5-S1. We then used the bur tip on the drill to resect the pars and the superior aspect of the facet joint, which was then passed off the field. We completed with a resection of the tissues from pedicle to pedicle at L5-S1 and the tissue here was noted to be extremely adherent from the previous laminotomy defects. We used very careful technique to tease the scar tissue from the underside of the thecal sac and nerve root, and we reached underneath using the angled nerve hooks, we were able to pull out a very large free fragment of disk material, which we then passed off the field. We retracted the thecal sac medially and completed a left-sided L5-S1 diskectomy. We prepared the cartilaginous endplates and measured the interbody space. We then placed a 7 x 23 mm titanium PEEK Elevate cage filled with morselized autograft and allograft anteriorly toward the midline. We packed additional morcellized autograft in the disk space for the interbody fusion and let down distraction. We decorticated the bone on the right side between L5 and S1. We placed 2 lordotic rods into the heads of the screws between L5 and S1 and secured them down with cap screws, which were tightened per the mixing operator's setting. We placed morselized autograft and allograft on the right side between L5-S1 and irrigated the wound copiously with bacitracin irrigation. We left a drain in the subfascial space and injected preservative-free narcotics. We closed the wound in multiple layers using Vicryl sutures in the deep layers and Dermabond for the skin. The patient's wounds were dressed sterilely. She was flipped supine onto the transfer cart. She was awakened, extubated, and taken to the recovery room in stable condition. There were no complications and no noted changes on neuromonitoring throughout the procedure. COMPLICATIONS: None. /[id number]/MODL MTDD
[2017-03-16] MEDS: ACETAMINOPHEN 500 MG TAB PO SCH (21:39)
[2017-03-16] MEDS: FAMOTIDINE 20 MG TAB PO SCH (21:39)
[2017-03-16] MEDS: morphINE SR 15 MG TAB PO SCH (21:39)
[2017-03-16] MEDS: METHOCARBAMOL 750 MG TAB PO PRN (21:39)
[2017-03-16] MEDS: SENNOSIDES/DOCUSATE SODIUM TAB PO SCH (21:39)
[2017-03-17] MEDS: ceFAZolin 2 GM/DEXTROSE 100 ML IV SCH ×2 (00:25→08:46)
[2017-03-17] MEDS: diphenhydrAMINE 25 MG CAP PO PRN ×2 (01:55→03:50)
[2017-03-17] MEDS: ACETAMINOPHEN 500 MG TAB PO SCH ×3 (06:05→20:15)
[2017-03-17] MEDS: METHOCARBAMOL 750 MG TAB PO PRN ×2 (06:05→20:15)
[2017-03-17] MEDS ORDERED: GABAPENTIN 100 MG CAP PO PRN (07:16)
--- NOTE | 2017-03-17 07:37 | NEUSURGPN ---
Assessment/Plan: Assessment: 42 year old female s/p L5-S1 TLIF with Dr Morgan 03/16/17 POD#1 Plan: -PT/OT -Patient will be fitted with brace today - to be worn when OOB -Post op xrays pending -Optimize pain management - MS contin, oxycodone, dilaudid, robaxin ordered - will need to see what meds work best for her -TEDs, SCDs, lovenox POD#1 -Holt out -MANDY drain had 80 out, leave in for now -Pt seen by Dr Morgan as well, discussed plan with him -Call neurosurg with any questions or concerns Subjective: Pt resting in bed, states her pain is fairly well managed at this time. States that in the past pain meds like oxycodone and norco haven't helped. Has taken dilaudid with slightly more pain relief. Objective: AAOx3 NAD VSS MAEx4 Motor 5/5 BLE Incision dressed JPx1 Holt out Urinary Catheter in Place: No Catheter Insertion Date: 03/16/17 - Physician Discussed Patient with Dr.: Eddie Patient Seen by : Eddie Neurosurgery Physical Exam - Vitals, I&O, Labs I and O 03/16/17 03/17/17 03/18/17 05:59 05:59 05:59 Intake Total 4664 Output Total 3455 Balance 1209 Weight 68.039 kg Intake: Oral (ml) 3025 IV Intake (ml) 1000 IV Infused (ml) 639 Ns 1,000 ml @ 75 mls/hr 539 IV CONT ARIANNE Rx#: [id number] ceFAZolin 2 GM/DEXTROSE 100 100 ml @ 200 mls/hr IV ONCALL ONE Rx#:[id number] Output: Urine (ml) 3275 Catheter 3275 Estimated Blood Loss (ml) 100 MANDY Drain Output (ml) 80 Back Koby Llanos 80 Vital Signs Temp Pulse Resp BP Pulse Ox 36.9 C 41 L 18 102/52 L 93 03/17/17 03:48 03/17/17 03:48 03/17/17 03:48 03/17/17 03:48 03/17/17 03:48 ICD10 Worksheet Patient Problems: Problems Problem Status Onset Lumbar disc herniation Acute
[2017-03-17] MEDS: FAMOTIDINE 20 MG TAB PO SCH ×2 (08:46→20:16)
[2017-03-17] MEDS: SENNOSIDES/DOCUSATE SODIUM TAB PO SCH ×2 (08:46→20:15)
[2017-03-17] MEDS: morphINE SR 15 MG TAB PO SCH ×2 (08:46→20:15)
[2017-03-17] MEDS ORDERED: DOXYCYCLINE HYCLATE 50 MG PO SCH (14:00)
[2017-03-17] MEDS: DOXYCYCLINE HYCLATE 100 MG CAP/TAB PO SCH (14:54)
[2017-03-17] MEDS ORDERED: PATCH REMOVAL 1 EA PATCH TD ONE (16:08)
[2017-03-17] MEDS: HYDROmorphONE/DILAUDID 2 MG TAB PO PRN (17:08)
[2017-03-17] MEDS: ENOXAPARIN 40 MG/0.4 ML SYR SC SCH (20:14)
[2017-03-18] MEDS: METHOCARBAMOL 750 MG TAB PO PRN (02:33)
[2017-03-18] MEDS: ACETAMINOPHEN 500 MG TAB PO SCH (05:39)
--- NOTE | 2017-03-18 08:17 | NEUSURGPN ---
Date of Surgery: 03/16/17 Post Op Day: 2 Assessment/Plan: Assessment: 42 year old female s/p L5-S1 TLIF with Dr Morgan 03/16/17 POD#1 Plan: -DC home today -Post op xrays stable -Wear brace when oob -DC MANDY drain prior to discharge -Discussed plan with Dr Morgan Subjective: Patient has expected lower back pain. left lateral foot numbness Objective: NAD VSS MAEx4 Motor 5/5 BLE Incision dressed Neuro Check Frequency: per routine Urinary Catheter in Place: No Catheter Insertion Date: 03/16/17 - Physician Discussed Patient with : Eddie Neurosurgery Physical Exam - Vitals, I&O, Labs I and O 03/17/17 03/18/17 03/19/17 05:59 05:59 05:59 Intake Total 4664 2950 Output Total 3455 2720 Balance 1209 230 Weight 68.039 kg Intake: Oral (ml) 3025 2950 IV Intake (ml) 1000 IV Infused (ml) 639 Ns 1,000 ml @ 75 mls/hr 539 IV CONT ARIANNE Rx#: [id number] ceFAZolin 2 GM/DEXTROSE 100 100 ml @ 200 mls/hr IV ONCALL ONE Rx#:[id number] Output: Urine (ml) 3275 2600 Bedside Commode 600 Catheter 3275 Toilet 2000 Estimated Blood Loss (ml) 100 MNADY Drain Output (ml) 80 120 Back Koby Llanos 80 120 Other: Intake Quantity Yes Sufficient Number of Voids Bedside Commode 1 Toilet 1 Vital Signs Temp Pulse Resp BP Pulse Ox 37.3 C 51 L 14 105/54 L 90 L 03/18/17 07:40 03/18/17 07:40 03/18/17 07:40 03/18/17 07:40 03/18/17 07:40 ICD10 Worksheet Patient Problems: Problems Problem Status Onset Lumbar disc herniation Acute
[2017-03-18] MEDS: morphINE SR 15 MG TAB PO SCH (08:26)
[2017-03-18] MEDS: FAMOTIDINE 20 MG TAB PO SCH (08:27)
[2017-03-18] MEDS: ENOXAPARIN 40 MG/0.4 ML SYR SC SCH (08:27)
[2017-03-18] MEDS: SENNOSIDES/DOCUSATE SODIUM TAB PO SCH (08:27)
[2017-03-18] MEDS: DOXYCYCLINE HYCLATE 100 MG CAP/TAB PO SCH (08:27)
[2017-03-18 11:45] VITALS: BP 100/58; PULSE 45; RESP 16; TEMP 98.7; O2SAT 91
[2017-03-18] MEDS: HYDROmorphONE/DILAUDID 2 MG TAB PO PRN (12:42)
[2017-03-19] MEDS ORDERED: PATCH REMOVAL 1 EA PATCH TD SCH (16:08)
== END 2017-03-18 14:21 | disposition home or self-care (01) | DRG 460 ==
LOC: OBSVTOIN 19:33 → F3N 20:17
PROVIDERS: ADMIT Neurological Surgery; ATTEND Neurological Surgery
PROC: 0SG30AJ Fusion of Lumbosacral Joint with Interbody Fusion Device, Posterior Approach, Anterior Column, Open Approach (ICD-10-PCS; principal; 2017-03-16 16:30)
PROC: 01NB0ZZ Release Lumbar Nerve, Open Approach (ICD-10-PCS; principal; 2017-03-16 16:30)
PROC: 0QB00ZZ Excision of Lumbar Vertebra, Open Approach (ICD-10-PCS; principal; 2017-03-16 16:30)
DX: M51.17 Intervertebral disc disorders with radiculopathy, lumbosacral region (principal)
CPT/HCPCS: 96374; 97161-GP; 97165-GO; A9585; C1713; C1762; J0690; J1100; J1170; J1650; J2250; J2274; J2405; J2704; J3010

== ENCOUNTER → 2017-06-01 | Outpatient (CLI) | payer OTHER | LOC: FIMAGING 14:46 | PROVIDERS: ATTEND Physician Assistant | DX: M51.26 Other intervertebral disc displacement, lumbar region (principal); M54.16 Radiculopathy, lumbar region; Z98.1 Arthrodesis status ==

== ENCOUNTER 2017-09-25 08:50 | Inpatient (IN) | payer BC, OTHER ==
[2017-09-25] MEDS ORDERED: LR 1,000 ML IV ONE (09:03)
[2017-09-25] MEDS ORDERED: cefOXitin SODIUM 2 GM in STERILE WATER INJ 21 ML IV ONE (09:03)
[2017-09-25] MEDS ORDERED: LIDOCAINE 1% 2 ML INJ ID PRN (09:03)
[2017-09-25] MEDS ORDERED: BUPIVACAINE/EPI 0.5% 30 ML SDV ONE (09:22)
--- NOTE | 2017-09-25 10:40 | PDHPUP ---
History & Physical Update H&P update statement: This history and physical update is based on an assessment of the patient which was completed after admission or registration (within 24 hours), but prior to the surgery/procedure.
[2017-09-25] MEDS ORDERED: MIDAZOLAM 2 MG/2 ML VIAL ONE (12:06)
[2017-09-25] MEDS ORDERED: MIDAZOLAM 2 MG/2 ML VIAL IVP ONE (12:08)
--- NOTE | 2017-09-25 12:09 | PDANEPAE ---
ANE History of Present Illness Patient presents for hemorrhoid surgery ANE Past Medical History - Cardiovascular History Hx Hypertension: No Hx Arrhythmias: No Hx Chest Pain: No Hx Coronary Artery / Peripheral Vascular Disease: No Hx CHF / Valvular Disease: No Hx Palpitations: No - Pulmonary History Hx COPD: No Hx Asthma/Reactive Airway Disease: No Hx Recent Upper Respiratory Infection: No Hx Oxygen in Use at Home: No Hx Sleep Apnea: No Sleep Apnea Screening Result - Last Documented: Negative - Neurologic History Hx Cerebrovascular Accident: No Hx Seizures: No Hx Dementia: No - Endocrine History Hx Diabetes: No - Renal History Hx Renal Disorders: No - Liver History Hx Hepatic Disorders: No - Neurological & Psychiatric Hx Hx Neurological and Psychiatric Disorders: No - Cancer History Hx Cancer: No - Congenital Disorder History Hx Congenital Disorders: No - GI History Hx Gastrointestinal Disorders: No Gastrointestinal History Comment: CELIAX DISEASE. HEMMORHOIDS W/BLEEDING & PAIN - Other Health History Other Health History: NEG - Chronic Pain History Chronic Pain: No - Surgical History Prior Surgeries: FUSION LUMBAR MARCH 2017. MICRODISCECTOMIES X2. BREAST AUGMENTATIONS ANE Review of Systems Review of Systems: - Exercise capacity METS (RN): 6 METS ANE Patient History - Allergies Allergies/Adverse Reactions: No Known Allergies Allergy (Verified 03/16/17 10:33) - Home Medications Home Medications: Doxycycline Hyclate [Morgidox] 50 mg PO DAILY 03/16/17 [Last Taken 09/24/17] Lidocaine 2% Jelly 09/24/17 [Last Taken Unknown] - NPO status NPO Status: no food or drink >8 hours NPO Since - Liquids (Date): 09/25/17 NPO Since - Liquids (Time): 07:40 NPO Since - Solids (Date): 09/24/17 NPO Since - Solids (Time): 23:00 - Anes Hx Anes Hx: no prior problems - Smoking Hx Smoking Status: Never smoked - Family Anes Hx Family Hx Anesthesia Complications: NEG ANE Labs/Vital Signs - Vital Signs Blood Pressure: 112/56 Heart Rate: 44 Respiratory Rate: 16 O2 Sat (%): 99 Height: 179.71 cm Weight: 68.039 kg ANE Physical Exam - Airway Neck exam: FROM Mallampati Score: Class 1 Mouth exam: normal dental/mouth exam - Pulmonary Pulmonary: no respiratory distress - Cardiovascular Cardiovascular: regular rate and rhythym - ASA Status ASA Status: I, II ANE Anesthesia Plan Anesthesia Plan: general endotracheal anesthesia (rba discussed)
[2017-09-25] MEDS ORDERED: PROPOFOL 200 MG/20 ML VIAL ONE ×2 (12:11→12:27)
[2017-09-25] MEDS ORDERED: fentaNYL 100 MCG/2 ML INJ ONE ×4 (12:11→13:29)
[2017-09-25] MEDS ORDERED: SUCCINYLCHOLINE CHLORIDE 200 MG/10 ML SYR IVP ONE (12:12)
[2017-09-25] MEDS ORDERED: LIDOCAINE 2% 5 ML SDV ONE (12:12)
[2017-09-25] MEDS ORDERED: GLYCOPYRROLATE 0.2 MG/1 ML VIAL ONE (12:18)
[2017-09-25] MEDS ORDERED: KETOROLAC 30 MG/1 ML SDV ONE (12:54)
--- NOTE | 2017-09-25 13:07 | POSTANESTH ---
Post Anesthetic Evaluation Cardiovascular Status: Similar to Pre-Op Cond Respiratory Status: Similar to Pre-op Cond. Level of Consciousness/Mental Status: Can Participate in Eval Pain Control: Adequate, Prn Tx Ordered Nausea/Vomiting Control: Adequate, Prn Tx Ordered Complications Possibly Related to Anesthesia: None Noted
[2017-09-25] MEDS ORDERED: LR 500 ML IV PRN (13:16)
[2017-09-25] MEDS ORDERED: HYDROCODONE/APAP 5/325 TAB PO PRN (13:16)
[2017-09-25] MEDS ORDERED: NALOXONE HCL 0.4 MG/ML INJ IVP PRN ×2 (13:16→15:57)
[2017-09-25] MEDS ORDERED: ONDANSETRON 4 MG/2 ML VIAL IVP PRN ×2 (13:16→15:58)
[2017-09-25] MEDS ORDERED: OXYCODONE/APAP 5/325 TAB PO PRN (13:16)
[2017-09-25] MEDS: fentaNYL 100 MCG/2 ML INJ IVP PRN ×4 (13:18→13:46)
[2017-09-25] MEDS ORDERED: OXYCODONE/APAP 5/325 TAB ONE (14:00)
[2017-09-25] MEDS ORDERED: KETOROLAC 30 MG/1 ML SDV IVP ONE (14:13)
--- NOTE | 2017-09-25 14:17 | POSTOPPROG ---
Post Op Note Date of Operation: 09/25/17 Surgeon: Laci Del Valle Anesthesiologist: LISA Anesthesia: GET(General Endotracheal) Pre-op Diagnosis: RECTAL BLEEDING, HEMORRHOIDS, ANAL FISSURE Post-op Diagnosis: SAME Indication: PAIN AND BLEEDING Procedure: EXAM UNDER ANESTHESIA, INTERNAL HEMORRHOID LIGATIONS LATERAL INTERNAL SPHIN Findings: SUPERFICIAL POSTERIOR IS FISSURES, STRONG SPHINCTER, GRADE 2-3 INTERNAL HEM Inf/Abcess present in the surg proc area at time of surgery?: No Depth: Organ Space EBL: Minimal Complications: NONE
[2017-09-25] MEDS ORDERED: HYDROmorphONE/DILAUDID 2 MG TAB ONE (14:59)
[2017-09-25] MEDS ORDERED: HYDROmorphONE/DILAUDID 2 MG TAB PO ONE (15:00)
[2017-09-25] MEDS ORDERED: KETOROLAC 15 MG/1 ML SDV ONE (15:48)
[2017-09-25] MEDS ORDERED: HYDROmorphONE/DILAUDID 1 MG/ML INJ ONE (15:49)
[2017-09-25] MEDS ORDERED: HYDROmorphONE/DILAUDID 6 MG/30 ML PCA IV PRN (15:57)
[2017-09-25] MEDS: HYDROmorphONE/DILAUDID 1 MG/ML INJ IVP PRN ×2 (15:58→20:17)
[2017-09-25] MEDS ORDERED: ONDANSETRON DISINTEGRATING 4 MG TAB PO PRN (16:01)
[2017-09-25] MEDS: D5W 1/2 NS W/ 20 KCl/L 1,000 ML IV SCH (18:10)
[2017-09-25] MEDS: KETOROLAC 15 MG/1 ML SDV IVP SCH ×2 (19:23→23:31)
[2017-09-25] MEDS: POLYETHYLENE GLYCOL 3350 17 GM PKT PO SCH (20:17)
[2017-09-25] MEDS ORDERED: MAGNESIUM HYDROXIDE 30 ML UDCUP PO PRN (20:47)
[2017-09-25] MEDS ORDERED: BISACODYL 10 MG SUPP PR PRN (20:47)
[2017-09-25] MEDS ORDERED: POLYETHYLENE GLYCOL 3350 17 GM PKT PO PRN (20:47)
[2017-09-25] MEDS: SENNOSIDES/DOCUSATE SODIUM TAB PO SCH (21:48)
[2017-09-26] MEDS: OXYCODONE/APAP 5/325 TAB PO PRN ×2 (01:44→15:16)
[2017-09-26] MEDS: HYDROmorphONE/DILAUDID 1 MG/ML INJ IVP PRN ×4 (05:21→23:10)
[2017-09-26] MEDS: KETOROLAC 15 MG/1 ML SDV IVP SCH ×4 (05:42→23:11)
[2017-09-26] MEDS: SENNOSIDES/DOCUSATE SODIUM TAB PO SCH ×2 (08:12→22:08)
[2017-09-26] MEDS: POLYETHYLENE GLYCOL 3350 17 GM PKT PO SCH (08:12)
--- NOTE | 2017-09-26 12:10 | SOAPPROG ---
MICHAEL Progress Note Assessment/Plan: Assessment: STATUS POST HEMORRHOID BANDING/STILL SIGNIFICANT PAIN AND LOTS OF NAUSEA PERINEUM [place] BUT PATIENT STATES SHE HAS SEEN HIS PAST SEVERAL RUBBER BAND Plan: CONTINUE OBSERVATION/QUESTIONS SUCCESS OF HER BANDING PROCEDURE/ANOSCOPY IN THE A.M. 09/26/17 12:09 09/26/17 14:31 Objective: Vital Signs Temp Pulse Resp BP Pulse Ox 36.9 C 44 L 12 116/69 98 09/26/17 11:16 09/26/17 11:16 09/26/17 11:16 09/26/17 11:16 09/26/17 11:16 09/25/17 09/26/17 09/27/17 05:59 05:59 05:59 Intake Total 1325 550 Output Total 345 1000 Balance 980 -450 ICD10 Worksheet Patient Problems: Problems Problem Status Onset Lumbar disc herniation Acute
[2017-09-26] MEDS: PROMETHAZINE HCL 25 MG/ML INJ IVP PRN (12:33)
[2017-09-26] MEDS: D5W 1/2 NS W/ 20 KCl/L 1,000 ML IV SCH (15:20)
--- NOTE | 2017-09-26 16:23 | ASMTCMCOM ---
CM Note CM Note Notes: Pt. is a 42-year-old woman who had hemorrhoid surgery. Slow recovery. Plan for independent d/c when ready. CM available should d/c POC change. Date Signed: 09/26/2017 04:22 PM Electronically Signed By:Nancy Bahena LCSW
[2017-09-27] MEDS: KETOROLAC 15 MG/1 ML SDV IVP SCH ×3 (05:28→20:33)
[2017-09-27] MEDS: HYDROmorphONE/DILAUDID 1 MG/ML INJ IVP PRN ×2 (05:28→20:34)
[2017-09-27] MEDS: POLYETHYLENE GLYCOL 3350 17 GM PKT PO SCH (08:10)
[2017-09-27] MEDS: SENNOSIDES/DOCUSATE SODIUM TAB PO SCH ×2 (08:10→22:13)
--- NOTE | 2017-09-27 08:41 | SOAPPROG ---
MICHAEL Progress Note Assessment/Plan: Assessment: STATUS POST HEMORRHOID BANDING/STILL SIGNIFICANT PAIN AND LOTS OF NAUSEA PERINEUM [place] BUT PATIENT STATES SHE HAS SEEN HIS PAST SEVERAL RUBBER BAND Plan: CONTINUE OBSERVATION/QUESTIONS SUCCESS OF HER BANDING PROCEDURE/ANOSCOPY IN THE A.M. 09/26/17 12:09 09/26/17 14:31 09/27/17 08:39 banding seems to have failed with major prolapse and swelling/ will proceed with hemorhoidectomy/ risks and options fully discussed Objective: Vital Signs Temp Pulse Resp BP Pulse Ox 36.9 C 48 L 16 109/55 L 97 09/27/17 07:46 09/27/17 07:46 09/27/17 07:46 09/27/17 07:46 09/27/17 07:46 09/26/17 09/27/17 09/28/17 05:59 05:59 05:59 Intake Total 1325 6865 Output Total 345 1900 Balance 980 245 ICD10 Worksheet Patient Problems: Problems Problem Status Onset Lumbar disc herniation Acute
[2017-09-27] MEDS ORDERED: cefOXitin SODIUM 2 GM in STERILE WATER INJ 21 ML IV ONE (11:12)
--- NOTE | 2017-09-27 11:48 | PDANEPAE ---
ANE History of Present Illness hemorrhoids here for hemorhoidectomy ANE Past Medical History - Cardiovascular History Hx Hypertension: No Hx Arrhythmias: No Hx Chest Pain: No Hx Coronary Artery / Peripheral Vascular Disease: No Hx CHF / Valvular Disease: No Hx Palpitations: No - Pulmonary History Hx COPD: No Hx Asthma/Reactive Airway Disease: No Hx Recent Upper Respiratory Infection: No Hx Oxygen in Use at Home: No Hx Sleep Apnea: No Sleep Apnea Screening Result - Last Documented: Negative - Neurologic History Hx Cerebrovascular Accident: No Hx Seizures: No Hx Dementia: No - Endocrine History Hx Diabetes: No - Renal History Hx Renal Disorders: No - Liver History Hx Hepatic Disorders: No - Neurological & Psychiatric Hx Hx Neurological and Psychiatric Disorders: No - Cancer History Hx Cancer: No - Congenital Disorder History Hx Congenital Disorders: No - GI History Hx Gastrointestinal Disorders: No Gastrointestinal History Comment: CELIAX DISEASE. HEMMORHOIDS W/BLEEDING & PAIN - Other Health History Other Health History: NEG - Chronic Pain History Chronic Pain: No - Surgical History Prior Surgeries: FUSION LUMBAR MARCH 2017. MICRODISCECTOMIES X2. BREAST AUGMENTATIONS ANE Review of Systems Review of Systems: - Exercise capacity METS (RN): 6 METS ANE Patient History - Allergies Allergies/Adverse Reactions: No Known Allergies Allergy (Verified 03/16/17 10:33) - Home Medications Home Medications: Doxycycline Hyclate [Morgidox] 50 mg PO DAILY 03/16/17 [Last Taken 09/24/17] - NPO status NPO Status: no food or drink >8 hours NPO Since - Liquids (Date): 09/27/17 NPO Since - Liquids (Time): 00:00 NPO Since - Solids (Date): 09/27/17 NPO Since - Solids (Time): 00:00 - Anes Hx Anes Hx: no prior problems - Smoking Hx Smoking Status: Never smoked - Alcohol Use Alcohol Use: Rarely - Family Anes Hx Family Anes Hx: none Family Hx Anesthesia Complications: NEG ANE Labs/Vital Signs - Vital Signs Blood Pressure: 106/59 Heart Rate: 41 Respiratory Rate: 16 O2 Sat (%): 95 Height: 179.71 cm Weight: 68.039 kg ANE Physical Exam - Airway Neck exam: FROM Mallampati Score: Class 2 Mouth exam: normal dental/mouth exam - Pulmonary Pulmonary: no respiratory distress, clear to auscultation - Cardiovascular Cardiovascular: regular rate and rhythym, no murmur, rub, or gallop - ASA Status ASA Status: II ANE Anesthesia Plan Anesthesia Plan: GA with mask, spinal Total IV Anesthesia: Yes
[2017-09-27] MEDS ORDERED: MIDAZOLAM 2 MG/2 ML VIAL IVP ONE (11:51)
[2017-09-27] MEDS ORDERED: MIDAZOLAM 2 MG/2 ML VIAL ONE (11:52)
[2017-09-27] MEDS ORDERED: morphINE PF 5 MG/10 ML INJ ONE (11:54)
[2017-09-27] MEDS ORDERED: PROPOFOL/EMULSION 500 MG/50 ML BOTTLE IV ONE ×2 (12:09→13:06)
[2017-09-27] MEDS ORDERED: BUPIVACAINE 0.5% 30 ML SDV ONE (12:40)
--- NOTE | 2017-09-27 13:21 | POSTOPPROG ---
Post Op Note Date of Operation: 09/27/17 Surgeon: Laci Del Valle Anesthesiologist: mayra Anesthesia: GET(General Endotracheal) Pre-op Diagnosis: prolapsed hemorhoids Post-op Diagnosis: same Indication: pain Procedure: EUA, HEMORHOIDECTOMY Findings: GRADE IV PROLAPSED, THROMBOSED HEMORHOIDS Inf/Abcess present in the surg proc area at time of surgery?: No Depth: Organ Space EBL: Minimal Complications: 0 Specimen(s): HEMORHOIDS
--- NOTE | 2017-09-27 13:27 | POSTANESTH ---
Post Anesthetic Evaluation Cardiovascular Status: Normal, Stable, Similar to Pre-Op Cond Respiratory Status: Normal, Stable, Similar to Pre-op Cond. Level of Consciousness/Mental Status: Can Participate in Eval, Alert and Oriented Pain Control: Adequate, Prn Tx Ordered Nausea/Vomiting Control: Adequate, Prn Tx Ordered Complications Possibly Related to Anesthesia: None Noted
[2017-09-27] MEDS ORDERED: D5W 1/2 NS W/ 20 KCl/L 1,000 ML IV SCH (13:30)
[2017-09-27] MEDS ORDERED: HYDROmorphONE/DILAUDID 1 MG/ML INJ IVP PRN (13:31)
[2017-09-27] MEDS ORDERED: NALOXONE HCL 0.4 MG/ML INJ IVP PRN (13:31)
[2017-09-27] MEDS ORDERED: fentaNYL 100 MCG/2 ML INJ IVP PRN (13:31)
[2017-09-27] MEDS: D5W 1/2 NS W/ 20 KCl/L 1,000 ML IV SCH (14:26)
[2017-09-27] MEDS: PROMETHAZINE HCL 25 MG/ML INJ IVP PRN (16:10)
[2017-09-27] MEDS: cefOXitin SODIUM 1 GM in STERILE WATER INJ 10.5 ML IV SCH (17:18)
[2017-09-27] MEDS: OXYCODONE/APAP 5/325 TAB PO PRN (23:58)
[2017-09-28] MEDS: cefOXitin SODIUM 1 GM in STERILE WATER INJ 10.5 ML IV SCH ×3 (00:01→11:37)
[2017-09-28] MEDS: HYDROmorphONE/DILAUDID 1 MG/ML INJ IVP PRN ×5 (00:25→19:40)
[2017-09-28] MEDS: KETOROLAC 15 MG/1 ML SDV IVP SCH ×4 (01:57→20:49)
[2017-09-28] MEDS: PROMETHAZINE HCL 25 MG/ML INJ IVP PRN (09:44)
--- NOTE | 2017-09-28 09:46 | SOAPPROG ---
SOAP Progress Note Assessment/Plan: Assessment/Plan: 42 Y F s/p EUA with anal sphinterotomy for anal fissures, internal hemorrhoid band ligation. Post op course complicated nausea, pain, and band failure with subsequent internal hemorrhoid swelling and prolapse. Now s/p formal surgical hemorrhoidectomy. Seen by Dr. Del Valle. Adding topical lidocaine jelly. Regular diet. Stool softeners/miralax. Continue IV abx. Multiple surgeries in non-clean area. Dispo: pending. Could go home if we achieve adequate pain control and no bleeding issues. Hemorrhoidectomy is notorious for pain control problems. S: c/o pain. O: alert, nad no wob abd soft wounds clean 09/28/17 09:43 Objective: Vital Signs Temp Pulse Resp BP Pulse Ox 37.4 C 56 L 20 131/72 H 99 09/28/17 08:00 09/28/17 08:00 09/28/17 08:00 09/28/17 08:00 09/28/17 08:00 09/27/17 09/28/17 09/29/17 05:59 05:59 05:59 Intake Total 8396 9398 Output Total 8698 0030 Balance 245 4794 ICD10 Worksheet Patient Problems: Problems Problem Status Onset Lumbar disc herniation Acute
[2017-09-28] MEDS: SENNOSIDES/DOCUSATE SODIUM TAB PO SCH ×2 (09:56→20:50)
[2017-09-28] MEDS: OXYCODONE/APAP 5/325 TAB PO PRN ×3 (11:37→23:29)
[2017-09-28] MEDS: LIDOCAINE 2% JELLY 5 ML TUBE TP SCH ×3 (11:38→20:50)
[2017-09-28] MEDS: POLYETHYLENE GLYCOL 3350 17 GM PKT PO SCH (11:55)
--- NOTE | 2017-09-28 16:01 | POSTANESTH ---
Post Anesthetic Evaluation Cardiovascular Status: Normal, Stable, Similar to Pre-Op Cond Respiratory Status: Normal, Stable, Similar to Pre-op Cond. Level of Consciousness/Mental Status: Can Participate in Eval, Alert and Oriented Pain Control: Adequate, Prn Tx Ordered Nausea/Vomiting Control: Adequate, Prn Tx Ordered Complications Possibly Related to Anesthesia: None Noted Notes: Pt has recovered from spinal/duramorph. Denies VILLAGOMEZ, able to ambulate w/o difficulty. Mild pruritis overnight. Back site is c/d/i, no e/e/e. Pt has ongoing pain, needs to be addressed with IV/PO narcotics per surgical team.
[2017-09-29] MEDS: KETOROLAC 15 MG/1 ML SDV IVP SCH (01:23)
[2017-09-29] MEDS: HYDROmorphONE/DILAUDID 1 MG/ML INJ IVP PRN (06:37)
[2017-09-29] MEDS: POLYETHYLENE GLYCOL 3350 17 GM PKT PO SCH (07:59)
[2017-09-29] MEDS: SENNOSIDES/DOCUSATE SODIUM TAB PO SCH (07:59)
[2017-09-29 08:13] VITALS: BP 137/80; PULSE 49; RESP 16; TEMP 98.3; O2SAT 96
[2017-09-29] MEDS: OXYCODONE/APAP 5/325 TAB PO PRN (09:27)
--- NOTE | 2017-09-29 10:45 | SOAPPROG ---
SOAP Progress Note Assessment/Plan: Assessment/Plan: 42 Y F s/p EUA with anal sphinterotomy for anal fissures, internal hemorrhoid band ligation. Post op course complicated nausea, pain, and band failure with subsequent internal hemorrhoid swelling and prolapse. Now s/p formal surgical hemorrhoidectomy. pain better controlled. no bleeding. chan out and voiding. Dispo: home today. S: c/o pain. O: alert, nad no wob abd soft wounds clean, +ecchymosis 09/29/17 10:45 Objective: Vital Signs Temp Pulse Resp BP Pulse Ox 36.8 C 49 L 16 137/80 H 96 09/29/17 08:00 09/29/17 08:00 09/29/17 08:00 09/29/17 08:00 09/29/17 08:00 09/28/17 09/29/17 09/30/17 05:59 05:59 05:59 Intake Total 7094 3600 Output Total 2300 Balance 4794 3600 ICD10 Worksheet Patient Problems: Problems Problem Status Onset Lumbar disc herniation Acute
[2017-09-29] MEDS: LIDOCAINE 2% JELLY 5 ML TUBE TP SCH (11:32)
--- NOTE | 2017-09-29 12:07 | ASDISCHSUM ---
Discharge Information Plan Status:Home with No Needs Medically Cleared to Leave:09/28/2017 Discharge Date:09/29/2017 11:36 AM CM D/C Disposition: ADT D/C Disposition:Home, Routine, Self-Care Projected Discharge Date:09/29/2017 12:00 AM Transportation at D/C: Discharge Delay Reason: Follow-Up Date:09/29/2017 12:00 AM Discharge Slot: Final Diagnosis: Placement Information Patient Contact Information Contact Name:GEOVANNA Relationship:Mother Address:[address] Work Phone: City:[facility] Phone: State/Zip Code:[place] [address] Email: Financial Information Financial Class:HMO and PPO Plans Primary Plan Desc:[employer] PPO Primary Plan Number:[id number] Secondary Plan Desc: Secondary Plan Number: Assessment Information [facility] CM Progress Note CM Note CM Note Notes: Pt. is a 42-year-old woman who had hemorrhoid surgery. Slow recovery. Plan for independent d/c when ready. CM available should d/c POC change. Date Signed: 09/26/2017 04:22 PM Electronically Signed By:Nancy Bahena LCSW Intervention Information
--- NOTE | 2017-09-29 13:27 | GDS ---
[f rep st] DISCHARGE SUMMARY DISCHARGE DIAGNOSIS: 1. Rectal pain. 2. Anal fissures. 3. Prolapsing internal hemorrhoids. 4. Urinary retention. PROCEDURES: 1. Exam under anesthesia with internal hemorrhoid ligation and lateral internal sphincterotomy. 2. Exam under anesthesia with hemorrhoidectomy. HOSPITAL COURSE: April is a 42-year-old female who presented with complaints of rectal pain and bleed ing. She was found to have multiple anal fissures with internal hemorrhoids thought to be amenable t o internal band ligation. She underwent exam under anesthesia with lateral sphincterotomy for her fi ssures as well as internal band ligation. The patient's postoperative course complicated by pain. S he was kept overnight for observation. Bands had slipped and she had increased hemorrhoid prolapse a nd so it was decided to bring her back to the operating room for a formal hemorrhoidectomy. She charlinee rated this well. There were no complications. She did have urinary retention during her hospital st ay requiring Holt catheterization. When this was removed, she was able to void spontaneously. She had a great deal of pain but eventually improved and she felt ready for discharge. DISCHARGE INSTRUCTIONS: Patient was discharged to home in stable condition with plans for outpatient followup. She was given prescriptions for ibuprofen, Percocet, and lidocaine jelly. We discussed a ctivity restrictions and stool softener and laxative use. /[id number]/MODL
--- NOTE | 2017-09-30 13:12 | GOP ---
[f rep st] OPERATIVE REPORT DATE OF OPERATION: 09/25/2017 SURGEON: Laci Del Valle MD PREOPERATIVE DIAGNOSIS: Internal hemorrhoids and superficial anal fissures. POSTOPERATIVE DIAGNOSIS: Internal hemorrhoids and superficial anal fissures. PROCEDURE PERFORMED: Exam under anesthesia, internal ligation of hemorrhoids, and lateral internal sphincterotomy. FINDINGS: Patient was found to have superficial posterior anal fissures with a strong anal sphincter. She had additionally grade 3 internal hemorrhoids, which were fairly large. DESCRIPTION OF PROCEDURE: The patient was taken to the operating room where she received satisfactory general endotracheal anesthesia, placed in lithotomy position, prepped and draped in the usual sterile fashion. The anus was infiltrated with 0.5% Marcaine and gently dilated to 3 fingerbreadths with the above-noted findings. A short incision was made at the 9 o'clock position. Dissection extended submucosally and the internal sphincter muscle was identified, grasped with Allis clamp, and partially divided with electrocautery. That wound was closed with 4-0 chromic suture. Attention was then turned to the internal hemorrhoids, which were relatively large. The one at the 11 o'clock position appeared to be the recent culprit for bleeding. These hemorrhoids were then rubber-band ligated in 5 separate positions. Wounds were further infiltrated with 0.5% Marcaine. She tolerated the procedure without reasonably well. She was taken to recovery room in good condition after dressing the wounds. /[id number]/MODL MTDD
== END 2017-09-29 11:36 | disposition home or self-care (01) | DRG 349 ==
LOC: FSGY 08:50 → F3E 16:15 → OBSVTOIN 09-27 08:58
PROVIDERS: ADMIT Surgery; ATTEND Surgery
PROC: 06LY3CC Occlusion of Hemorrhoidal Plexus with Extraluminal Device, Percutaneous Approach (ICD-10-PCS; principal; 2017-09-25 10:45)
PROC: 0D8R3ZZ Division of Anal Sphincter, Percutaneous Approach (ICD-10-PCS; principal; 2017-09-25 10:45)
PROC: 06BY3ZC Excision of Hemorrhoidal Plexus, Percutaneous Approach (ICD-10-PCS; 2017-09-27)
DX: K64.8 Other hemorrhoids (principal); K60.2 Anal fissure, unspecified; R33.9 Retention of urine, unspecified; G89.18 Other acute postprocedural pain
CPT/HCPCS: G0378; J0330; J0694; J0697; J1170; J1885; J2250; J2274; J2405; J2550; J2704; J3010

== ENCOUNTER → 2017-11-05 | Outpatient (CLI) | payer OTHER | LOC: FIMAGING 06:53 | PROVIDERS: ATTEND Physician Assistant Surgical | DX: Z98.1 Arthrodesis status (principal) ==

== ENCOUNTER → 2018-03-15 | Outpatient (CLI) | payer OTHER | LOC: FIMAGING 08:25 | PROVIDERS: ATTEND Physical Medicine & Rehabilitation | DX: K83.8 Other specified diseases of biliary tract (principal) | CPT/HCPCS: 78227; A9537 ==